=== PATIENT | male | born 1995 | race Caucasian/White ===

== ENCOUNTER 2020-09-15 21:28 | Emergency (ER) | payer SELFPAY ==
[2020-09-15 21:31] VITALS: PULSE 101; RESP 18; TEMP 36.6; O2SAT 98; BMI 39.7
--- NOTE | 2020-09-15 21:43 | W.ED.GENADLT ---
HPI - General Adult General: Chief complaint: General Medical Stated complaint: PT STATES BLOOD SUGAR IS HIGH Time Seen by Provider: 09/15/20 21:33 Source: patient Mode of arrival: ambulatory Limitations: no limitations History of Present Illness: HPI narrative: 25-year-old male comes in today with complaints of visual disturbances and polyuria. Patient was talking to his family and they thought it sounded like he may be having some blood sugar issues as both his parents have blood sugar problems. Patient checked his blood sugar at home is 487. Patient come into the ER to be evaluated and treated. Patient appears well. Patient appears in no pain. Review of Systems General: Reports: 10 or more systems reviewed and unremarkable except in HPI and below Endo: Reports: other (High blood sugar.) Physical Exam Const: COMMON NORMALS: no acute distress and patient oriented x3 GENERAL APPEARANCE: cooperative HENMT: COMMON NORMALS: normocephalic and Normal external nose present HEAD & SCALP: normal to inspection and normocephalic NOSE: Normal external nose present MOUTH: Normal oral and palatal mucosa present Eye: GENERAL EYE: appearance normal, both eyes and all related structures Neck/C-Spine: COMMON NORMALS: full ROM Chest: COMMONS NORMALS: normal inspection of the chest Resp: COMMON NORMALS: normal respiratory effort EFFORT & INSPECTION: Yes able to speak in complete sentences Cardio: COMMON NORMALS: regular rate and regular rhythm RATE: regular rate RHYTHM: regular rhythm GI: COMMON NORMALS: non-tender Back/Pelvis: COMMON NORMALS: thoracic and lumbar spine normal to inspection Extremity: COMMON NORMALS: normal to inspection Neuro: COMMON NORMALS: patient oriented x3 and moves all extremities Psych: COMMON NORMALS: mental status grossly normal and cooperative Skin: COMMON NORMALS: no rashes or lesions noted GENERAL SKIN EXAM: no rashes or lesions noted Course Vital Signs: Vital signs: Vital Signs Temperature 97.9 F 09/15/20 21:31 Pulse Rate 105 H 09/15/20 22:21 Respiratory Rate 16 09/15/20 22:21 Blood Pressure 158/92 09/15/20 22:21 Pulse Oximetry 96 09/15/20 22:21 MDM - General Adult MDM Narrative: Medical decision making narrative: Patient comes in for evaluation of high blood sugar. On exam patient's bncku-ry-[id number] glucose was 429. Patient's pupils are equal and reactive. Skin was warm and dry. Vital signs were normal. Respirations were even lungs are clear to auscultation. Differential diagnosis includes diabetes type 2, ketoacidosis, hyperosmolar nonketotic acidosis, uncontrolled diabetes, hyperglycemia. Laboratory values were negative for ketones in the serum. Blood glucose was elevated at 398. Patient was hydrated with IV fluids and given 10 units of insulin. Patient's potassium was 4.2. Reviewed exam with patient with recommendations for treatment to start Metformin 1000 mg daily and to follow-up with primary care for further instruction. Patient reported understanding of care plan and need for follow-up. Case management referral was placed for primary care. Lab Data: Labs: Lab Results 09/15/20 09/15/20 09/15/20 Range/Units 21:42 22:10 22:10 WBC 9.1 (4.0-10.0) 10^3/ uL RBC 5.26 (4.1-5.3) 10^6/u L Hgb 15.6 (11.7-16.6) g/dL Hct 44.7 (42.0-52.0) % MCV 85.0 (80-94) fL MCH 29.7 (28.0-34.0) pg MCHC 34.9 (30.0-36.0) g/dL RDW 11.9 L (12.1-15.1) % Plt Count 248 (130-400) 10^3/c mm MPV 10.6 H (7.4-10.4) fL Neut % (Auto) 51.2 % Lymph % (Auto) 39.6 % [place] % (Auto) 6.3 % Eos % (Auto) 2.0 % Baso % (Auto) 0.8 % Neut # (Auto) 4.66 (1.8-7.7) 10^3/u L Lymph # (Auto) 3.6 (0.8-4.8) 10^3/u L [place] # (Auto) 0.6 (0.2-0.9) 10^3/u L Eos # (Auto) 0.2 (0.0-0.8) 10^3/u L Baso # (Auto) 0.1 (0.0-0.1) 10^3/u L Nucleated RBC % (a uto) 0 % Nucleated RBCs # 0.0 /100WBC Sodium 137 (136-145) mmol/L Potassium 4.2 (3.5-5.1) mmol/L Chloride 97 L (98-107) mmol/L Carbon Dioxide 26 (22-29) mmol/L Anion Gap 18.2 (5-19) BUN 14 (6-20) mg/dL Creatinine 0.9 (0.7-1.2) mg/dL GFR Calculation 104.6 (90-130) mL/min Glucose 398 H (65-115) mg/dL POC Glucose 429 H (70-110) mg/dL Calculated Osmolal ity 301 H (285-295) mOsm/k g Calcium 9.9 (8.5-10.5) mg/dL Total Bilirubin 1.2 (0.15-1.2) mg/dL AST 78 H (0-40) U/L ALT 73 H (0-41) U/L Alkaline Phosphata se 112 (40-130) IU/L Total Protein 7.7 (6.6-8.7) g/dL Albumin 4.8 (3.5-5.2) g/dL Globulin 2.9 (1.3-4.6) g/dL Serum Ketones (Negative) 09/15/20 Range/Units 22:10 WBC (4.0-10.0) 10^3/ uL RBC (4.1-5.3) 10^6/u L Hgb (11.7-16.6) g/dL Hct (42.0-52.0) % MCV (80-94) fL MCH (28.0-34.0) pg MCHC (30.0-36.0) g/dL RDW (12.1-15.1) % Plt Count (130-400) 10^3/c mm MPV (7.4-10.4) fL Neut % (Auto) % Lymph % (Auto) % [place] % (Auto) % Eos % (Auto) % Baso % (Auto) % Neut # (Auto) (1.8-7.7) 10^3/u L Lymph # (Auto) (0.8-4.8) 10^3/u L [place] # (Auto) (0.2-0.9) 10^3/u L Eos # (Auto) (0.0-0.8) 10^3/u L Baso # (Auto) (0.0-0.1) 10^3/u L Nucleated RBC % (a uto) % Nucleated RBCs # /100WBC Sodium (136-145) mmol/L Potassium (3.5-5.1) mmol/L Chloride (98-107) mmol/L Carbon Dioxide (22-29) mmol/L Anion Gap (5-19) BUN (6-20) mg/dL Creatinine (0.7-1.2) mg/dL GFR Calculation (90-130) mL/min Glucose (65-115) mg/dL POC Glucose (70-110) mg/dL Calculated Osmolal ity (285-295) mOsm/k g Calcium (8.5-10.5) mg/dL Total Bilirubin (0.15-1.2) mg/dL AST (0-40) U/L ALT (0-41) U/L Alkaline Phosphata se (40-130) IU/L Total Protein (6.6-8.7) g/dL Albumin (3.5-5.2) g/dL Globulin (1.3-4.6) g/dL Serum Ketones Negative (Negative) Discharge Plan Discharge Patient Disposition: Home Condition: Stable Prescriptions: New metformin 500 mg tablet extended release 24 hr 500 mg PO BID Qty: 60 RF: 3 Discharge Orders: Discharge ED (Routine); Ordered 09/15/20 Ordered By: Shayne Sawyer Referrals: Ayaka Maldonado APN [Primary Care Provider] - Discharge Diet: Diabetic Discharge Activity: Increase activity as tolerated Patient Instructions: Diabetes Mellitus Type 2 in Adults (ED), Opioid Safety Activity Restrictions/Additional Instructions: Limit concentrated sweets and sugars in your diet. Eat a healthy diet with plenty of fresh fruits and vegetables and lean proteins. Avoid sodas. Follow-up with primary care for further education and treatment. Return to emergency department for new concerns. Coding Level of Care Code ED Printing Roller Polisher for Arabella Fwcorbin Exam Comprehensive
[2020-09-15 21:46] LABS: Glucose Point of Care 429 mg/dL (70-110)
[2020-09-15] MEDS: sodium chloride 0.9% 1,000 ML 999 ML IV ×2 (22:19→22:50)
[2020-09-15 22:20] LABS: Basophils # 0.1 10^3/uL (0.0-0.1); Basophils % 0.8 %; Eosinophils # 0.2 10^3/uL (0.0-0.8); Hematocrit 44.7 % (42.0-52.0); Hemoglobin 15.6 g/dL (11.7-16.6); Lymphocytes # 3.6 10^3/uL (0.8-4.8); Lymphocytes % 39.6 %; Mean Corpuscular HGB Conc 34.9 g/dL (30.0-36.0); Mean Corpuscular Hemoglobin 29.7 pg (28.0-34.0); Mean Platelet Volume 10.6 fL (7.4-10.4); Monocytes # 0.6 10^3/uL (0.2-0.9); Monocytes % 6.3 %; Neutrophils # 4.66 10^3/uL (1.8-7.7); Neutrophils % 51.2 %; Nucleated Red Blood Cells % 0 %; Platelet Count 248 10^3/cmm (130-400); Red Blood Count 5.26 10^6/uL (4.1-5.3); Red Cell Distribution Width 11.9 % (12.1-15.1); White Blood Count 9.1 10^3/uL (4.0-10.0)
[2020-09-15 22:21] VITALS: BP 158/92; PULSE 105; RESP 16; O2SAT 96
[2020-09-15 22:29] LABS: Ketone (Acetest) Serum Negative (Negative)
[2020-09-15 22:39] LABS: Alanine Aminotransferase 73 U/L (0-41); Albumin Level 4.8 g/dL (3.5-5.2); Alkaline Phosphatase 112 IU/L (40-130); Anion Gap 18.2 (5-19); Aspartate Amino Transferase 78 U/L (0-40); Blood Urea Nitrogen 14 mg/dL (6-20); Calcium 9.9 mg/dL (8.5-10.5); Carbon Dioxide 26 mmol/L (22-29); Chloride 97 mmol/L (98-107); Globulin 2.9 g/dL (1.3-4.6); Glomerular Filtration Rate 104.6 mL/min (90-130); Glucose 398 mg/dL (65-115); Osmolality Calculated 301 mOsm/kg (285-295); Potassium 4.2 mmol/L (3.5-5.1); Sodium 137 mmol/L (136-145); Total Bilirubin 1.2 mg/dL (0.15-1.2); Total Protein 7.7 g/dL (6.6-8.7)
[2020-09-15] MEDS: insulin regular-human 100 units/1 mL 10 UNIT IVP (22:50)
[2020-09-15 23:58] VITALS: BP 147/90; PULSE 92; RESP 18; O2SAT 98
[2020-09-15 23:59] LABS: Glucose Point of Care 238 mg/dL (70-110)
--- NOTE | 2020-09-17 15:38 | DCPLANNER ---
harvest manager had message to speak with patient about getting established with a primary care physician. harvest manager called phone number [phone], unable to speak with patient at this time. harvest manager was able to leave a voicemail for patient to return classification case manager phone call.
== END 2020-09-16 00:06 | disposition home or self-care (01) ==
PROVIDERS: Emergency Provider Nurse Practitioner Family; PCP Nurse Practitioner Family
DX: H53.9 Unspecified visual disturbance (principal)
CPT/HCPCS: 36416; 80053; 82009; 82962; 85025; 96361; 96374; 99283; J1815; J7030

== ENCOUNTER 2023-06-07 13:46 | Emergency (ER) | payer OTHER, SELFPAY ==
[2023-06-07 14:07] VITALS: BP 165/97; PULSE 83; RESP 16; TEMP 37.1; O2SAT 99; BMI 39.7
--- NOTE | 2023-06-07 15:36 | W.ED.ALLEREA ---
HPI - Allergic Reaction General: Chief complaint: Allergic Reaction Stated complaint: possible allergic reaction Time Seen by Provider: 06/07/23 15:33 Source: patient Mode of arrival: ambulatory Limitations: no limitations History of Present Illness: HPI narrative: Patient is a 28-year-old male presents to ED today with a complaint of a pruritic rash starting 2 days ago. He states his rash appears hive-like although he has taken Benadryl without relief. He cannot think of any environmental/household exposures. No new food or drink exposures. He states he does feel slightly short of breath. He has not noticed any swelling to his lips or tongue. MD complaint: allergic reaction and hives Onset (ago): day(s) Exposure: unknown Associated symptoms: Reports itching; Deny abdominal pain, dizziness, nausea or vomiting Severity: moderate Treatment prior to arrival: benadryl Previous Allergic Reaction History: none Review of Systems Const: Denies: fever(s), chills, body aches, fatigue or malaise ENMT: Denies: throat pain or odynophagia Card: Denies: chest pain Resp: Denies: dyspnea GI: Denies: abdominal pain, nausea, vomiting or diarrhea Musc: Denies: neck pain, back pain, extremity pain or joint pain Skin/Breast: Reports: rash and pruritus Neuro: Denies: headache(s), numbness in extremities, weakness in extremities, sensory changes or dizziness PFSH ED PFSH: Medical History Benign essential HTN Diabetes mellitus with hyperglycemia, without long-term current use of insulin Family History Other Brain tumor Dementia Diabetes Denies family history of Bleeding disorder Hypertension Stroke Social History Smoking and tobacco/nicotine status: current every day tobacco/nicotine user e-cigarettes E-Cigarette Details: vaporizer device and with nicotine Second hand smoke exposure: No Alcohol intake: current Alcohol intake frequency: holidays/special occasions only Substance/Drug Use: unknown Adopted: No Caregiver/support person: No Lives independently: Yes Household members: significant other and children Housing: House Marital status: Single service: No Current occupational status: employed Current occupation: [employer] [place] [employer] Pets and animals: Yes Do you think of yourself as: Straight/Heterosexual Current gender identity: Male Physical Exam Const: COMMON NORMALS: no acute distress, average body habitus, patient oriented x3, no limitations, healthy appearing, alert and well nourished HENMT: FACE & SINUS: normal facial exam MOUTH: Normal oral and palatal mucosa present, lip normal and other (no lip/tongue swelling) Eye: GENERAL EYE: appearance normal, both eyes and all related structures Neck/C-Spine: GENERAL: Yes normal visual inspection, No anterior neck swelling and No submandibular swelling Resp: COMMON NORMALS: normal respiratory effort and clear to auscultation bilaterally AUSCULTATION: clear to auscultation bilaterally Cardio: COMMON NORMALS: regular rate and regular rhythm RATE: regular rate RHYTHM: regular rhythm Extremity: COMMON NORMALS: normal to inspection GENERAL: Yes normal exam except as noted Neuro: COMMON NORMALS: patient oriented x3, moves all extremities, no focal motor deficits and no sensory deficits noted SENSORIUM/ORIENTATION: Yes alert Skin: RASHES: rashes noted (urticarial appearing rash-generalized) Course Vital Signs: Vital signs: Vital Signs Temperature 98.8 F 06/07/23 14:07 Pulse Rate 70 06/07/23 17:28 Respiratory Rate 16 06/07/23 14:07 Blood Pressure 113/80 06/07/23 17:28 Pulse Oximetry 98 06/07/23 17:28 Oxygen Delivery Me thod Room Air 06/07/23 16:31 MDM - Allergic Reaction Medical Decision Making Rash has almost completely subsided following IV Benadryl, Solu-Medrol, and Pepcid. Patient was recommended to continue Benadryl at home. Will place him on a steroid taper. Return ED precautions given. Differential Diagnosis Likely allergic reaction Medical Records I reviewed the patient's medical records. Lab Data Laboratory Results POC Glucose 81 mg/dL (70-110) 06/07/23 17:05 No radiology studies performed this visit Discharge Plan Discharge Patient Disposition: Home Clinical Impression: Allergic reaction Qualifiers: Encounter type: initial encounter Qualified Code(s): T78.40XA - Allergy, unspecified, initial encounter Condition: Stable Prescriptions: New prednisone 10 mg tablet 10 mg PO DAILY 9 Days Qty: 32 0RF Rx Instructions: Take 5 tabs on days 1-3, 4 tabs on days 4-5, 3 tabs on days 6-7, 2 tabs on day 8, 1 tab on day 9 No Action Victoza 3-Yaw 0.6 mg/0.1 mL (18 mg/3 mL) pen injector See Rx Instructions SUBCUT .COMPLEX Qty: 9 0RF Rx Instructions: inject 0.6mg subcutaneously once daily x 7 days; then 1.2mg daily, not to exceed 1.8mg/day SUBCUT metformin 500 mg tablet extended release 24 hr 2,000 mg PO DAILY Qty: 120 2RF lisinopril 10 mg tablet 10 mg PO DAILY Qty: 30 2RF (DME) pen needle, diabetic 33 gauge x 5/32 needle See Rx Instructions .ROUTE .MEDSUPPLY Qty: 100 5RF Rx Instructions: 1 times day Discharge Orders: Discharge ED (Routine); Ordered 06/07/23 Ordered By: Rose Smith Patient Instructions: Allergic Reaction, Urticaria (ED) Coding Level of Care Code ED Walking Dragline Oiler for Arabella Frost
[2023-06-07 15:46] VITALS: PULSE 90; O2SAT 100
[2023-06-07] MEDS: diphenhydrAMINE 50 mg/mL SDV 1mL IVP (16:26)
[2023-06-07] MEDS: famotidine 20 mg/2 mL INJ 40 MG IVP (16:29)
[2023-06-07 16:31] VITALS: BP 118/69; PULSE 62; O2SAT 98
[2023-06-07] MEDS: methylPREDNISolone sod succ 125 mg/2 mL INJ IVP (16:34)
[2023-06-07 17:09] LABS: Glucose Point of Care 81 mg/dL (70-110)
[2023-06-07 17:28] VITALS: BP 113/80; PULSE 70; O2SAT 98
== END 2023-06-07 17:29 | disposition home or self-care (01) ==
PROVIDERS: Emergency Provider Physician Assistant
DX: T78.40XA Allergy, unspecified, initial encounter (principal); Z79.84 Long term (current) use of oral hypoglycemic drugs; I10 Essential (primary) hypertension; E11.9 Type 2 diabetes mellitus without complications; Z72.0 Tobacco use; X58.XXXA Exposure to other specified factors, initial encounter
CPT/HCPCS: 36416; 82962; 96374; 96375; 99284; J1200; J2930; J3490

== ENCOUNTER → 2024-08-17 08:27 | Outpatient (BNVA) | payer OTHER, SELFPAY | PROVIDERS: PCP Nurse Practitioner; Visit Provider Nurse Practitioner | DX: E11.9 Type 2 diabetes mellitus without complications (principal); E11.65 Type 2 diabetes mellitus with hyperglycemia | CPT/HCPCS: 80053; 80061; 81000; 83036 ==